=== PATIENT | female | born 1955 | race Asian ===

== ENCOUNTER 2017-08-30 11:18 | Day surgery (SDC) | payer OTHER ==
[2017-08-30] MEDS ORDERED: PROPOFOL 20 ML ×3 (13:34→14:16)
== END 2017-08-30 16:20 | disposition home or self-care (01) ==
LOC: GIL 11:18
DX: Z12.11 Encounter for screening for malignant neoplasm of colon (principal); K64.8 Other hemorrhoids
CPT/HCPCS: 45378